=== PATIENT | male | born 1950 | race Caucasian/White ===

== ENCOUNTER 2017-08-29 20:39 | Emergency (ER) | payer MEDICARE, OTHER ==
[2017-08-29] MEDS: IV NORMAL SALINE 1,000ML 1,000 ML IV SCH ×2 (21:06→21:33)
--- NOTE | 2017-08-29 21:06 | ED.ADGEN ---
Past History Past Medical History: Other Past Surgical History: Cervical Fusion Adult General Chief Complaint Chief Complaint Min. response- grunts to questions and noxious. " He had some diarrhea the other day.. but that stopped.. he been having some back pain.. but he got really weak.. he can/'t even transfer now.. He's got Parkinson..." " He just got so sick tonight.. ( - 43 yrs) HPI HPI Patient is a 67 year old male who presents with above hx and complaints increased weakness. Pt. presents very depressed mental status . Pt. Temp. 83 F rectal. Pt. bradycardia at rates low as 40, Hypotensive 80 systolic and hypoxic on room air. Pt. has long hx of Parkinson Dz.. Pt. has not had any travel or specific ill contacts. Pt. Follows with Jim Coats MD and Dr. Pierre neurology. Pt. has been compliant with meds. Pt. had central line placed for the Dopamine and warm fluids.. Pt. bradycardia responded to warm fluid bolus and 5 pineda of Dopamine. Pacer pad placed. Pt. place on bear hugger. Pt. intubated to protect air way due to frequent desaturations at times requiring 100 NRB mask. Pt. mental status improved after warm fluid bolus of 30 per kilo, . Pt. did have some verbal responses after obtaining the warm fluid, dopamine and obtaining adequate BP's 100' to 120 systolic. . Pt. still not protecting airway prior to intubation. requested pt be a full code for now. Review of Systems Review of Systems Pt. poor historian ROS as per HPI Family History Family History Non contributory to presentation Current Medications Current Medications Current Medications Medications (Trade) Dose Ordered Sig/Junior Start Time Stop Time Status Last Admin Dose Admin Aspirin (Karlo Aspirin) 325 mg 1X ONCE 08/29/17 21:15 08/29/17 21:20 DC Dopamine HCl/ Dextrose 250 ml @ 9 mls/hr 1X ONCE 08/29/17 22:30 08/31/17 02:16 08/29/17 22:30 22.5 MLS/HR Info (Do NOT chart on this entry -- for MONITORING) 1 each PRN DAILY PRN 08/29/17 23:30 08/31/17 23:29 Iohexol (Omnipaque 300 Mg/ml) 75 ml 1X ONCE 08/29/17 23:30 08/29/17 23:31 DC 08/29/17 23:36 75 ML Lactated Ringer's 1,000 ml @ 1,000 mls/hr 1X ONCE 08/29/17 23:30 08/30/17 00:29 DC 08/29/17 23:30 1,000 MLS/HR Levofloxacin/ Dextrose 100 ml @ 100 mls/hr 1X ONCE 08/29/17 23:45 08/30/17 00:44 DC 08/29/17 23:45 100 MLS/HR Methylprednisolone Sodium Succinate (SOLU-Medrol 125MG VIAL) 125 mg 1X ONCE 08/29/17 21:45 08/29/17 21:46 DC 08/29/17 22:11 125 MG Metronidazole 100 ml @ 100 mls/hr 1X ONCE 08/29/17 21:15 08/29/17 22:14 DC 08/29/17 21:32 100 MLS/HR Propofol 100 ml @ As Directed STK-MED ONCE 08/30/17 00:05 08/30/17 00:06 DC Sodium Chloride 1,000 ml @ 1,000 mls/hr 1X ONCE 08/29/17 22:30 08/29/17 23:29 DC 08/29/17 21:33 1,000 MLS/HR Succinylcholine Chloride (Anectine) 200 mg STK-MED ONCE 08/30/17 00:10 08/30/17 00:11 DC Vancomycin HCl 1 gm/Sodium Chloride 250 ml @ 250 mls/hr 1X ONCE 08/29/17 21:15 08/29/17 21:21 DC Vancomycin HCl 2 gm/Sodium Chloride 500 ml @ 250 mls/hr 1X ONCE 08/29/17 21:30 08/29/17 23:29 DC 08/29/17 21:50 250 MLS/HR Allergies Allergies Allergies Coded Allergies Type Severity Reaction Last Updated Verified aspirin Allergy Severe 08/29/17 Yes Penicillins Allergy Unknown 08/29/17 Yes meperidine Allergy Unknown 08/29/17 Yes propoxyphene Allergy Unknown 08/29/17 Yes Physical Exam Physical Exam Constitutional: in acute distress, morbidly ill in appearance. [] HENT: Normocephalic, atraumatic, bilateral external ears normal, oropharynx dry , no oral exudates, nose normal. [] Eyes: PERRLA, EOMI, conjunctiva normal, no discharge. [] Neck: Normal range of motion, no tenderness, supple, no stridor. Kyphosis. Old surgery scars. Cardiovascular:Bradycardia Heart rate regular rhythm, no murmur []PMI to Lt. Lungs & Thorax: Bilateral breath sounds rhonchi and crackles throughout on auscultation [] Abdomen: Bowel sounds decreased, soft, no tenderness, no masses, no pulsatile masses. Hard stool in vault. Skin: Warm, dry, no erythema, eczema dry rash. Poor turgor. Capillary refill more than 4 sec. Distal cyanosis. Back: No tenderness, no CVA tenderness. [] Extremities: No tenderness, Arthritic changes, no clubbing, ROM intact, no edema. Scar Rt. hip. Neurologic: Alert to name,, severe generalized motor weakness, moves all ext. to noxious sensory . Psychologic: Affect flat, depressed. Current Patient Data Vital Signs Vital Signs Date Time Temp Pulse Resp B/P (MAP) Pulse Ox O2 Delivery O2 Flow Rate FiO2 08/30/17 00:55 84.5 66 16 135/68 (90) 98 Ventilator Lab Results Laboratory Tests Test 08/29/17 20:55 08/29/17 21:36 08/29/17 21:40 08/29/17 22:13 White Blood Count 11.8 x10^3/uL (4.0-11.0) H Red Blood Count 5.22 x10^6/uL (4.30-5.70) Hemoglobin 15.2 g/dL (13.0-17.5) Hematocrit 45.5 % (39.0-53.0) Mean Corpuscular Volume 87 fL (79-100) Mean Corpuscular Hemoglobin 29 pg (25-35) Mean Corpuscular Hemoglobin Concent 33 g/dL (31-37) Red Cell Distribution Width 15.6 % (11.5-14.5) H Platelet Count 59 x10^3/uL (140-400) L Neutrophils (%) (Auto) 93 % (31-73) H Lymphocytes (%) (Auto) 5 % (24-48) L Monocytes (%) (Auto) 2 % (0-9) Eosinophils (%) (Auto) 0 % (0-3) Basophils (%) (Auto) 0 % (0-3) Neutrophils # (Auto) 11.0 x10^3uL (1.8-7.7) H Lymphocytes # (Auto) 0.5 x10^3/uL (1.0-4.8) L Monocytes # (Auto) 0.3 x10^3/uL (0.0-1.1) Eosinophils # (Auto) 0.0 x10^3/uL (0.0-0.7) Basophils # (Auto) 0.0 x10^3/uL (0.0-0.2) Segmented Neutrophils % 78 % (35-66) H Band Neutrophils % 13 % (0-9) H Lymphocytes % 3 % (24-48) L Atypical Lymphocytes % (Manual) 3 % (0-0) H Monocytes % 3 % (0-10) Platelet Estimate Decreased (ADEQUATE) Rosenberg Cells Few Prothrombin Time 13.0 SEC (9.4-11.4) H Prothrombin Time INR 1.3 (0.9-1.1) H PTT 32 SEC (23-33) D-Dimer (Janey) 0.81 mg/L (0.00-0.50) H Sodium Level 143 mmol/L (136-145) Potassium Level 3.5 mmol/L (3.5-5.1) Chloride Level 105 mmol/L (98-107) Carbon Dioxide Level 30 mmol/L (21-32) Anion Gap 8 (6-14) Blood Urea Nitrogen 27 mg/dL (8-26) H Creatinine 0.9 mg/dL (0.7-1.3) Estimated GFR (Cockcroft-Gault) 83.7 Glucose Level 135 mg/dL (70-99) H Lactic Acid Level 2.2 mmol/L (0.4-2.0) H Calcium Level 9.4 mg/dL (8.5-10.1) Magnesium Level 2.2 mg/dL (1.8-2.4) Total Bilirubin 0.4 mg/dL (0.2-1.0) Direct Bilirubin 0.1 mg/dL (0.0-0.2) Aspartate Amino Transferase (AST) 53 U/L (15-37) H Alanine Aminotransferase (ALT) 13 U/L (16-63) L Alkaline Phosphatase 110 U/L (46-116) Creatine Kinase 169 U/L (39-308) Creatine Kinase MB (Mass) 32.7 ng/mL (0.0-3.6) H Creatine Kinase MB Relative Index 19.3 % (0-4) H Troponin I Quantitative < 0.017 ng/mL (0-0.055) GR-Wbt-A-Type Natriuretic Peptide 142 pg/mL (0-124) H Total Protein 7.6 g/dL (6.4-8.2) Albumin 2.9 g/dL (3.4-5.0) L Lipase 1110 U/L (73-393) H Amylase Level 145 U/L (25-115) H Blood pH 7.49 (7.35-7.46) H Blood Gas PCO2 31 mmHg (35-46) L Blood Gas PO2 34 mmHg (80-100) *L Blood Gas HCO3 26 mmol/L (21-28) Arterial Bld O2 Saturation (Calc) 90 % (92-99) L FiO2 21 % Group A Streptococcus Rapid Negative (NEGATIVE) Test 08/29/17 22:17 08/29/17 22:45 08/29/17 23:20 08/30/17 00:55 Influenza Type A (Rapid) Negative (NEGATIVE) Influenza Type B (Rapid) Negative (NEGATIVE) Blood pH 7.44 (7.35-7.46) 7.42 (7.35-7.46) Blood Gas PCO2 36 mmHg (35-46) 36 mmHg (35-46) Blood Gas PO2 46 mmHg (80-100) *L 103 mmHg (80-100) H Blood Gas HCO3 27 mmol/L (21-28) 25 mmol/L (21-28) Arterial Bld O2 Saturation (Calc) 95 % (92-99) 99 % (92-99) FiO2 36 % 80 % Urine Collection Type Unknown Urine Color Yellow Urine Clarity Hazy Urine pH 5.0 Urine Specific [place] 1.020 Urine Protein Neg (NEG-TRACE) Urine Glucose (UA) Neg mg/dL (NEG) Urine Ketones (Stick) Neg mg/dL (NEG) Urine Blood Neg (NEG) Urine Nitrite Neg (NEG) Urine Bilirubin Neg (NEG) Urine Urobilinogen Dipstick 1 mg/dL (0.2 mg/dL) Urine Leukocyte Esterase Neg (NEG) Urine RBC Occ /HPF (0-2) Urine WBC Occ /HPF (0-4) Urine Squamous Epithelial Cells Occ /LPF Urine Bacteria Few /HPF (0-FEW) Urine Hyaline Casts Occ /HPF Urine Mucus Slight /LPF Urine Opiates Screen Neg (NEG) Urine Methadone Screen Neg (NEG) Urine Barbiturates Neg (NEG) Urine Phencyclidine Screen Neg (NEG) Urine Amphetamine/Methamphetamine Neg (NEG) Urine Benzodiazepines Screen Neg (NEG) Urine Cocaine Screen Neg (NEG) Urine Cannabinoids Screen Neg (NEG) Urine Ethyl Alcohol Neg (NEG) Lactic Acid Level 3.4 mmol/L (0.4-2.0) H EKG EKG My interpretation of EKG shows sinus Bradycardia- with prolonged AR, Lt. axis, LBB. - no findings of acute STEMI with contralateral changes. [] Radiology/Procedures Radiology/Procedures My interpretation of CXR show diffuse pneumonia, atelectasis, cardiomegaly. Hardware in neck. Post central line, OG and intubation show adequate placement[] My interpretation of Head and Cervical CT- shows no shift, mass, edema, bleed, or fracture. Does have findings of white matter disease and atrophy. Does have findings of severe degenerative joint changes of neck including fixation and approximate C5,. Patient's CT has diffuse central and foraminal stenosis at the level of C4-C5. See formal report when available. My interpretation of CT of chest shows diffuse pneumonia. No obvious large vessel pulmonary embolism. My interpretation of abdomen film shows no free air under diaphragm. CT of abdomen shows no free air. Does have appears to be inflamed pancreatic head. Constipation. See formal report when available. Course & Med Decision Making Course & Med Decision Making Pertinent Labs and Imaging studies reviewed. (See chart for details). Procedure Note: Central line placement- emergent need for pressors and fluids - sterile technique used. Drape and gown ,gloves , mask, and hat. Prepped and draped left subclavian. Kit prep. Placed left subclavian triple-lumen by Seldinger technique. Biopatch and sutured in place. Sterile dressing. Chest x- ray post show adequate position. No pneumothorax. Procedure note: Intubation and OG placement- patient periodically having desaturations, poor protection of his airway with gag. Intubated to protect airway and achieve better oxygenation. Patient intubated by [place] Scope 7.5 to -23 cm at teeth. Fog of tube. Breath sounds at axillary. No breath sounds over stomach. Increased saturations. Tube was secured by Kit. OG placement by auscultation. Post intubation x-ray shows adequate placement of OG and ET tube. Patient placed on AC at rate 16, 6 PEEP, Oxygen titrated- Critical Care - 120 minutes +, Counseling with family, vent management, multiple re-evaluations. Discussed presentation, testing and tx. plan with Dr. Balderas- will accept at [facility] - ICU. Dr. Balderas requested that Cardiology, Pulmonary, GI and Neurology be consulted reference this pt. Discussed presentation, testing and tx. plan with Dr. Arrieta, Dr. Beauchamp at time of Transfer. Still awaiting call backs for neurology and GI at time of transfer. Final Impression Final Impression 1. Sepsis 2. Pneumonia - Diffuse- Suspect chronic aspiration 3. Hypothermia 4. Hypotension 5. Parkinson 6. Elevated Lipase/ Amylase 7. Elevated D-dimer 8. Leukocytosis 9. Elevated Lactic Acid 10.Respiratory Failure- Hypoxia 11.Bradycardia- 12.Thrombocytopenia 13.Pancreatitis- 14.Constipation 14. Severe Central and Foramina Cervical Stenosis- Hx. prior fixation Problems: Dragon Disclaimer Dragon Disclaimer This electronic medical record was generated, in whole or in part, using a voice recognition dictation system. LINDY BAUTISTA MD Aug 29, 2017 21:06
[2017-08-29] MEDS ORDERED: VANCOMYCIN 1 GM in IV NORMAL SALINE 250ML 250 ML IV ONE (21:15)
[2017-08-29] MEDS ORDERED: ASPIRIN 325 MG TABLET PO ONE (21:15)
[2017-08-29] MEDS ORDERED: VANCOMYCIN 2 GM in IV NORMAL SALINE 500ML 500 ML IV ONE (21:30)
[2017-08-29 21:34] LABS: BASO % 0 % (0-3); EOS % 0 % (0-3); HEMATOCRIT 45.5 % (39.0-53.0); HEMOGLOBIN 15.2 g/dL (13.0-17.5); LYMPH # 0.5 x10^3/uL (1.0-4.8); LYMPH % 5 % (24-48); MEAN CORPUSCULAR HEMOGLOBIN 29 pg (25-35); MEAN CORPUSCULAR HGB CONC 33 g/dL (31-37); MEAN CORPUSCULAR VOLUME 87 fL (79-100); MONO # 0.3 x10^3/uL (0.0-1.1); MONO % 2 % (0-9); NEUT % 93 % (31-73); PLATELET COUNT 59 x10^3/uL (140-400); RED BLOOD COUNT 5.22 x10^6/uL (4.30-5.70); RED CELL DISTRIBUTION WIDTH 15.6 % (11.5-14.5); WHITE BLOOD COUNT 11.8 x10^3/uL (4.0-11.0)
[2017-08-29 21:43] LABS: ALBUMIN 2.9 g/dL (3.4-5.0); CALCIUM 9.4 mg/dL (8.5-10.1); CREATININE 0.9 mg/dL (0.7-1.3); DIRECT BILIRUBIN 0.1 mg/dL (0.0-0.2); GFR 83.7; MAGNESIUM 2.2 mg/dL (1.8-2.4); TOTAL BILIRUBIN 0.4 mg/dL (0.2-1.0); TOTAL PROTEIN 7.6 g/dL (6.4-8.2)
[2017-08-29 21:44] LABS: POTASSIUM 3.5 mmol/L (3.5-5.1)
[2017-08-29] MEDS ORDERED: methylPREDNISolone SOD SUCC PF 125 MG/2 ML VIAL. IV ONE (21:45)
[2017-08-29] MEDS ORDERED: ATROPINE 0.5 MG/5 ML DISP.SYRIN. ONE (22:00)
[2017-08-29 22:28] LABS: BGAS PH 7.49 (7.35-7.46)
[2017-08-29] MEDS ORDERED: IV NORMAL SALINE 1,000ML 1,000 ML IV ONE (22:30)
[2017-08-29] MEDS ORDERED: POTA20TA4 PO (22:35)
[2017-08-29] MEDS ORDERED: FURO-68 PO (22:35)
[2017-08-29] MEDS ORDERED: PRAM0.255 PO ×2 (22:35)
[2017-08-29] MEDS ORDERED: CARB1TAB2 PO (22:35)
[2017-08-29 22:43] LABS: % BANDS 13 % (0-9); % LYMPHS 3 % (24-48); % MONOS 3 % (0-10); % SEGS 78 % (35-66)
[2017-08-29 22:44] LABS: PLT ESTIMATE DECREASED (ADEQUATE)
[2017-08-29 22:46] LABS: BURR CELLS FEW
[2017-08-29 22:47] LABS: % ATYL 3 % (0-0)
[2017-08-29 22:58] LABS: INFLUENZA A PATIENT NEGATIVE (NEGATIVE); INFLUENZA B PATIENT NEGATIVE (NEGATIVE)
[2017-08-29] MEDS ORDERED: IV RINGERS SOLUTION,LACTATED 1,000 ML IV ONE ×2 (23:00→23:30)
[2017-08-29] MEDS ORDERED: IOHEXOL 300 MG/ML 75 ML VIAL. IV ONE (23:30)
[2017-08-29] MEDS ORDERED: CONTRAST GIVEN MC PRN (23:30)
[2017-08-29 23:48] LABS: BARBITURATES NEG (NEG); BENZODIAZEPINES NEG (NEG); CANNABINOIDS NEG (NEG); COCAINE NEG (NEG); METHADONE NEG (NEG); OPIATES NEG (NEG); PHENCYCLIDINE NEG (NEG)
[2017-08-29 23:49] LABS: AMPHETAMINE/METHAMPHETAMINE NEG (NEG)
[2017-08-29 23:53] LABS: BACTERIA,URINE FEW /HPF (0-FEW); BILIRUBIN,URINE NEG (NEG); CLARITY,URINE HAZY; COLOR,URINE YELLOW; GLUCOSE,URINE NEG (NEG); NITRITE,URINE NEG (NEG); RBC,URINE OCC /HPF (0-2); UROBILINOGEN,URINE 1 mg/dL (0.2 mg/dL); WBC,URINE OCC /HPF (0-4)
[2017-08-29 23:54] LABS: HYALINE CASTS, URINE OCC /HPF; SQUAMOUS EPITHELIAL CELL,UR OCC /LPF
[2017-08-30] MEDS ORDERED: PROPOFOL 0 ML IV ONE (00:04)
[2017-08-30] MEDS ORDERED: PROPOFOL 100 ML IV ONE (00:05)
[2017-08-30] MEDS ORDERED: SUCCINYLCHOLINE 200 MG/10 ML VIAL. ONE ×2 (00:10→00:30)
[2017-08-30] MEDS ORDERED: KETAMINE HCL 500 MG/10 ML VIAL. ONE (00:30)
[2017-08-30] MEDS ORDERED: MIDAZOLAM HCL PF 5 MG/5 ML VIAL. ONE (00:30)
[2017-08-30] MEDS ORDERED: PROPOFOL 10,000 MCG/ML (20ML) VIAL IV ONE (00:30)
[2017-08-30 00:55] VITALS: BP 135/68
--- NOTE | 2017-08-30 01:01 | RAD ---
EXAM: 1. CT HEAD WITHOUT CONTRAST. 2. CT CERVICAL SPINE WITHOUT CONTRAST. HISTORY: Weakness, lethargy, slurred speech, neck pain, fall. TECHNIQUE: Computed tomography of the head and cervical spine was performed without intravenous contrast. COMPARISON: None. FINDINGS: There is no intracranial hemorrhage. Hypoattenuation within the periventricular white matter indicates mild chronic microangiopathic change. Prominence of the lateral ventricles and hemispheric sulci indicates mild atrophy. There is mucosal thickening in the left maxillary sinus. The orbits are unremarkable. The temporal bones are unremarkable. The calvarium reveals no suspicious lesions. There are anterior cervical discectomy and fusion changes from C4 through C6. This appears solid at C5-6 but not clearly at C4-5. Alignment is maintained. There is mild osteoarthritis at C1-2. No fractures are identified. Degenerative disc disease is moderate to severe at C6-7. There is no prevertebral soft tissue swelling. At C2-3, there is a small posterior disc bulge. Left facet osteoarthritis is moderate to severe with prominent subchondral cysts. Uncovertebral osteoarthritis is mild to moderate on the left greater than right. Neural foraminal stenosis is moderate to severe on the left and moderate on the right. At C3-4, there is a moderate posterior disc-osteophyte complex. Central canal stenosis is moderate with minimal anteroposterior central canal diameter 7 mm. Uncovertebral osteoarthritis is moderate on the right greater than left. Neural foraminal stenosis is moderate on the left and moderate to severe on the right. At C4-5, there is a large posterior disc-osteophyte complex. This measures 7 mm anteroposteriorly. Central canal stenosis is severe. Minimal anteroposterior central canal diameter is 5 mm. Central stenosis is more severe on the left than right. Uncovertebral osteoarthritis is mild on the right. Neural foraminal stenosis is mild on the right. At C5-6, there is a moderate posterior disc-osteophyte complex. Central canal stenosis is moderate to severe with minimal anteroposterior central canal diameter 6 mm. Uncovertebral osteoarthritis is severe on the left and moderate on the right. Neural foraminal stenosis is moderate to severe on the left and moderate on the right. At C6-7, there is a moderate to large posterior disc-osteophyte complex. Central canal stenosis is moderate to severe with minimal anteroposterior central canal diameter 6 mm. Central stenosis is more severe on the left than right. Uncovertebral osteoarthritis is moderate to severe on the right and severe on the left. Neural foraminal stenosis is moderate on the right and moderate to severe on the left. Refer to today's chest study for more information. IMPRESSION: 1. No acute intracranial findings. 2. Mild atrophy and chronic microangiopathic white matter change. 3. Large posterior disc-osteophyte complexes result in central canal stenosis that is severe at C4-5 and moderate to severe from C5 through C7. It is moderate more superiorly. Ongoing management is recommended 4. multilevel bilateral facet and uncovertebral osteoarthritis results in moderate to severe diffuse neural foraminal stenosis as above. 5. C4-C6 anterior cervical discectomy and fusion appears solid at C5-6 but not clearly at C4-5. *One or more of the following individualized dose reduction techniques were utilized for this examination: 1. Automated exposure control. 2. Adjustment of the mA and/or kV according to patient size. 3. Use of iterative reconstruction technique. Electronically signed by: Titi Lamas MD (08/30/2017 12:58 AM) [id number]
[2017-08-30 01:07] LABS: BGAS PH 7.44 (7.35-7.46)
--- NOTE | 2017-08-30 01:13 | RAD ---
EXAM: 1. CT ANGIOGRAPHY OF THE CHEST WITH AND WITHOUT CONTRAST. 2. CT ABDOMEN/PELVIS WITH CONTRAST. HISTORY: Shortness of breath, cough, hypoxia, elevated d-dimer, elevated amylase, abdominal pain. TECHNIQUE: Computed tomographic angiography of the chest was performed before and after the intravenous administration of 75 mL Omnipaque 300. 3-D maximum intensity projections were also performed. CT of the abdomen/pelvis was also performed after intravenous contrast. COMPARISON: None. FINDINGS: Bone windows reveal no suspicious lesions. A right hip hemiarthroplasty is noted. Respiratory motion artifact limits assessment for small peripheral pulmonary emboli in the bases. None are seen. There is no aortic dissection or aneurysm. 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 A lateral aortic lymph node measures 2.1 x 1.3 cm. Right paratracheal and bilateral hilar lymph nodes are also prominent to a lesser degree. There are no enlarged axillary lymph nodes. There is no pleural or pericardial effusion. The heart is mildly enlarged. There are bilateral diffuse interstitial and airspace infiltrates with a basilar predominance. There are mild inflammatory changes about the pancreatic head. The pancreatic duct does not appear dilated. There is no biliary dilatation. There is a small amount of retroperitoneal fluid without a drainable collection. Contrast opacification is suboptimal. There is a small amount of pericholecystic fluid without clear gallbladder wall thickening or radiopaque cholelithiasis. The liver, spleen, adrenal glands and left kidney are unremarkable. There is a 1 cm cyst at the right renal lower pole. The bladder is decompressed by a Johnson catheter. A left arm PICC line is also in place. The bladder is decompressed but demonstrates mild wall thickening. Intraluminal gas is consistent with instrumentation. The rectum is distended to 7 cm. Stool throughout the left colon suggests mild constipation. Mild wall thickening of the right colon may be only from luminal decompression. The appendix is not inflamed. There is no obstruction. There are no pathologically enlarged lymph nodes. IMPRESSION: 1. Respiratory motion artifact limits sensitivity. No pulmonary emboli are identified. 2. Diffuse bilateral interstitial and airspace infiltrates are consistent moderate to severe pulmonary edema or diffuse pneumonia. 3. Mild cardiomegaly. 4. Mild inflammatory changes about the pancreatic head. Correlate for acute pancreatitis. 5. A small amount of fluid adjacent to the gallbladder may be trace ascites. Correlate with other data to exclude cholecystitis. 6. Findings suggesting fecal impaction. Right colonic wall thickening may be only from luminal decompression. Correlate to exclude mild right colitis. 6. Lateral wall thickening. Correlate with urinalysis. *One or more of the following individualized dose reduction techniques were utilized for this examination: 1. Automated exposure control. 2. Adjustment of the mA and/or kV according to patient size. 3. Use of iterative reconstruction technique. Electronically signed by: Titi Lamas MD (08/30/2017 1:09 AM) [id number]
[2017-08-30 01:36] LABS: BGAS PH 7.42 (7.35-7.46)
--- NOTE | 2017-08-30 03:51 | EKG ---
[address] [address] Test Date: 2017-08-29 Test Time: 20:53:00 Pat Name: CINDY ASTUDILLO Department: Room: Gender: M Adolescent Specialist: : [id number] Requested By: LINDY BAUTISTA Order Number: [id number] Reading MD: Measurements Intervals Friona Rate: 41 P: 39 NM: 282 QRS: -11 QRSD: 124 T: -43 QT: 528 QTc: 436 Interpretive Statements SINUS BRADYCARDIA PROLONGED NM INTERVAL LEFTWARD AXIS LEFT BUNDLE BRANCH BLOCK ABNORMAL ECG RI6.01 No previous ECG available for comparison
--- NOTE | 2017-08-30 07:17 | RAD ---
Indication: Shortness of breath, bradycardia, check line placement Technique: Portable AP chest x-ray Comparison: 07/31/2016 Findings: Left-sided line is seen with its tip in the mid SVC. Heart is normal in size. Lungs are hypoinflated. Bilateral patchy air space and interstitial opacities noted. No pneumothorax. No large pleural effusion. Visualized bony thorax is within normal limits. Impression: 1. Tip of the left-sided PICC line projects over the mid SVC. 2. Findings of multifocal pneumonia or pulmonary edema.
--- NOTE | 2017-08-30 07:59 | RAD ---
Indication: Intubation Technique: Supine portable AP chest x-ray Comparison: Plain film from 08/29/2017 Findings: Interval intubation with the tip of the ET tube approximately 6 cm above the level of radu. Stable position of left-sided PICC line with its tip in the mid SVC. Heart is normal in size. Diffuse bilateral confluent patchy opacities noted. No pneumothorax. No large pleural effusion. Visualized bony thorax within normal limits. NG tube is seen with its tip in the body of the stomach. Impression: 1. Appropriately positioned ET tube. 2. Bilateral lung disease likely secondary to multifocal pneumonia or pulmonary edema.
== END 2017-08-30 01:32 | disposition short-term general hospital (02) ==
LOC: ER 20:39
DX: A41.9 Sepsis, unspecified organism (principal); R65.20 Severe sepsis without septic shock; J96.01 Acute respiratory failure with hypoxia; J18.9 Pneumonia, unspecified organism; T68.XXXA Hypothermia, initial encounter; I95.9 Hypotension, unspecified; D72.829 Elevated white blood cell count, unspecified; R00.1 Bradycardia, unspecified; D69.6 Thrombocytopenia, unspecified; K85.90 Acute pancreatitis without necrosis or infection, unspecified; K59.00 Constipation, unspecified; R74.8 Abnormal levels of other serum enzymes; R79.1 Abnormal coagulation profile; R74.0 Nonspecific elevation of levels of transaminase and lactic acid dehydrogenase [LDH]; G20 Parkinson's disease; M48.02 Spinal stenosis, cervical region; Z88.6 Allergy status to analgesic agent; Z88.0 Allergy status to penicillin; Z88.8 Allergy status to other drugs, medicaments and biological substances
CPT/HCPCS: 31500; 36415; 36556; 36600; 43752; 51702; 70450; 71045; 71275; 72125; 74177; 80048; 80076; 80307; 81001; 82150; 82533; 82553; 82803; 83605; 83690; 83735; 83880; 84443; 84484; 85007; 85025; 85379; 85610; 85730; 87040; 87070; 87205; 87804; 87880; 93005; 94002; 96365; 96366; 96367; 96368; 96375; 99291; 99292; J0330; J0461; J1265; J1956; J2250; J2704; J2930; J3370; J3490; J7040; J7120; Q9967; G0479; J7030

== ENCOUNTER → 2017-12-09 | Outpatient (CLI) | payer OTHER ==
[~2017-12-09] MED LIST: CARB1TAB2 PO; FURO-68 PO; POTA20TA4 PO; PRAM0.255 PO
--- NOTE | 2017-12-09 12:51 | RAD ---
Lumbar spine, 3 views, 12/09/2017: HISTORY: Low back pain The lumbar vertebral heights are well-maintained. The intervertebral disc spaces are fairly well preserved. There are moderate scattered marginal spurs. There are mild to moderate degenerative changes at scattered facet joints, particularly in the lower lumbar spine. The paraspinous soft tissues are unremarkable. IMPRESSION: 1. Mild to moderate scattered degenerative changes. 2. No acute bony abnormality is detected. Electronically signed by: Jay Santacruz MD (12/09/2017 12:47 PM) [facility]
== END | disposition home or self-care (01) ==
LOC: DXRAD 11:06
PROVIDERS: ATTEND Family Medicine
DX: M46.06 Spinal enthesopathy, lumbar region (principal)
CPT/HCPCS: 72100

== ENCOUNTER 2018-04-22 22:43 | Emergency (ER) | payer MEDICARE, OTHER ==
[~2018-04-22] VITALS: Ht 185.4 cm; Wt 109.3 kg
[2018-04-22] MEDS ORDERED: CEPH-264 PO (23:33)
[2018-04-22] MEDS ORDERED: cefTRIAXone SODIUM 1 GM VIAL IV ONE (23:35)
[2018-04-22] MEDS ORDERED: LIDOCAINE 1% Multi-Dose 20 ML VIAL. ONE (23:35)
--- NOTE | 2018-04-22 23:35 | PHYS DOC ---
Adult General Chief Complaint Chief Complaint feels warm HPI HPI 68 years old presented to the emergency department with the chief complaint feeling warm might have a fever is also complaining of cough for the past 3 days no shortness of breath no chest pain no abdominal pain no nausea no vomiting no headache no rash Review of Systems Review of Systems Constitutional: Denies fever or chills [] Eyes: Denies change in visual acuity, redness, or eye pain [] HENT: Denies nasal congestion or sore throat [] Respiratory: Denies shortness of breath [] Cardiovascular: No additional information not addressed in HPI [] GI: Denies abdominal pain, nausea, vomiting, bloody stools or diarrhea [] : Denies dysuria or hematuria [] Musculoskeletal: Denies back pain or joint pain [] Integument: Denies rash or skin lesions [] Neurologic: Denies headache, focal weakness or sensory changes [] Endocrine: Denies polyuria or polydipsia [] All other systems were reviewed and found to be within normal limits, except as documented in this note. Allergies Allergies Allergies Coded Allergies Type Severity Reaction Last Updated Verified aspirin Allergy Severe 08/29/17 Yes Penicillins Allergy Unknown 08/29/17 Yes meperidine Allergy Unknown 08/29/17 Yes propoxyphene Allergy Unknown 08/29/17 Yes Physical Exam Physical Exam Constitutional: Well developed, well nourished, no acute distress, non-toxic appearance. [] HENT: Normocephalic, atraumatic, bilateral external ears normal, oropharynx moist, no oral exudates, nose normal. [] Eyes: PERRLA, EOMI, conjunctiva normal, no discharge. [] Neck: Normal range of motion, no tenderness, supple, no stridor. [] Cardiovascular:Heart rate regular rhythm, no murmur [] Lungs & Thorax: Bilateral breath sounds clear to auscultation [] Abdomen: Bowel sounds normal, soft, no tenderness, no masses, no pulsatile masses. [] Skin: Warm, dry, no erythema, no rash. [] Back: No tenderness, no CVA tenderness. [] Extremities: No tenderness, no cyanosis, no clubbing, ROM intact, no edema. [] Neurologic: Alert and oriented X 3, normal motor function, normal sensory function, no focal deficits noted. [] Psychologic: Affect normal, judgement normal, mood normal. [] Current Patient Data Vital Signs Vital Signs Date Time Temp Pulse Resp B/P (MAP) Pulse Ox O2 Delivery O2 Flow Rate FiO2 04/22/18 23:02 97.6 80 18 96 Room Air EKG EKG [] Radiology/Procedures Radiology/Procedures [] Course & Med Decision Making Course & Med Decision Making Pertinent Labs and Imaging studies reviewed. (See chart for details) [] Final Impression Final Impression [] Problems: (1) Bronchitis Dragon Disclaimer Dragon Disclaimer This electronic medical record was generated, in whole or in part, using a voice recognition dictation system. MARCUS SAMSON MD Apr 22, 2018 23:34
[2018-04-22 23:45] VITALS: BP 109/67
[2018-04-22] MEDS ORDERED: cefTRIAXone IM 1 GM VIAL IM ONE (23:45)
== END 2018-04-23 00:05 | disposition home or self-care (01) ==
LOC: ER 22:43
DX: J40 Bronchitis, not specified as acute or chronic (principal); Z88.6 Allergy status to analgesic agent; Z88.0 Allergy status to penicillin; Z88.8 Allergy status to other drugs, medicaments and biological substances
CPT/HCPCS: 96372; 99284; J0696

== ENCOUNTER 2018-05-29 17:48 | Inpatient (IN) | payer MEDICARE, OTHER ==
[~2018-05-29] VITALS: Ht 188 cm; Wt 113.2 kg
[~2018-05-29 17:48] MED LIST changes: -CETI10TA16 PO; -CHOL10003 PO; -LEVO750T5 PO; -MULT1TAB52 PO; -NYST15PO9 TP
[2018-05-29 18:18] VITALS: BP 143/78
[2018-05-29 19:05] VITALS: BP 126/85
[2018-05-29 19:19] LABS: HEMATOCRIT 42.8 % (39.0-53.0); HEMOGLOBIN 14.3 g/dL (13.0-17.5); RED BLOOD COUNT 4.92 x10^6/uL (4.30-5.70); RED CELL DISTRIBUTION WIDTH 15.1 % (11.5-14.5); WHITE BLOOD COUNT 9.3 x10^3/uL (4.0-11.0)
[2018-05-29 19:27] LABS: ALBUMIN/GLOBULIN RATIO 0.7 (1.0-1.7); CALCIUM 8.6 mg/dL (8.5-10.1); CREATININE 0.6 mg/dL (0.7-1.3); GFR 133.2; POTASSIUM 3.7 mmol/L (3.5-5.1); TOTAL BILIRUBIN 0.6 mg/dL (0.2-1.0); TOTAL PROTEIN 7.6 g/dL (6.4-8.2)
[2018-05-29] MEDS ORDERED: MULT1TAB52 PO (19:51)
[2018-05-29] MEDS ORDERED: CHOL10003 PO (19:51)
[2018-05-29] MEDS ORDERED: NYST15PO9 TP (19:51)
[2018-05-29] MEDS ORDERED: CETI10TA16 PO (19:51)
[2018-05-29 19:56] LABS: BGAS PH 7.39 (7.35-7.46)
[2018-05-29] MEDS: IPRATRPIUM/ALBUTEROL 0.5/2.5MG 3 ML NEBU. NEB SCH (20:44)
[2018-05-29] MEDS ORDERED: FUROSEMIDE 40 MG TABLET PO SCH (21:00)
[2018-05-29] MEDS ORDERED: POTASSIUM CHLORIDE 20 MEQ TABLET.ER. PO SCH (21:00)
[2018-05-29] MEDS: NYSTATIN TOPICAL POWDER 15GM BOTTLE. TP SCH (21:51)
[2018-05-29] MEDS: PRAMIPEXOLE 0.5 MG TABLET. PO SCH (21:51)
[2018-05-29] MEDS: CARBIDOPA/LEVODOPA 25/100MG TABLET PO SCH (21:51)
[2018-05-29 23:15] VITALS: BP 147/73
[2018-05-30] MEDS: IPRATRPIUM/ALBUTEROL 0.5/2.5MG 3 ML NEBU. NEB SCH ×4 (05:19→20:52)
[2018-05-30 05:45] VITALS: BP 114/70
[2018-05-30] MEDS: CETIRIZINE HCL 10 MG TABLET PO SCH (08:24)
[2018-05-30] MEDS: PRAMIPEXOLE 0.5 MG TABLET. PO SCH ×3 (08:24→20:40)
[2018-05-30] MEDS: CHOLECALCIFEROL (VITAMIN D3) 1,000 UNIT TABLET PO SCH (08:25)
[2018-05-30] MEDS: CARBIDOPA/LEVODOPA 25/100MG TABLET PO SCH ×4 (08:25→20:40)
[2018-05-30] MEDS: MULTIVITAMIN with MINERAL TABLET. PO SCH (08:25)
[2018-05-30] MEDS: NYSTATIN TOPICAL POWDER 15GM BOTTLE. TP SCH ×2 (08:26→20:40)
[2018-05-30] MEDS: LACTOBACILLUS RHAMNOSUS GG 1 CAPSULE. PO SCH ×2 (08:26→20:39)
[2018-05-30 10:25] VITALS: BP 118/74
[2018-05-30 14:36] VITALS: BP 127/80
[2018-05-30 19:43] VITALS: BP 114/70
--- NOTE | 2018-05-30 20:41 | HP ---
ADMIT DATE: 05/29/2018 HISTORY OF PRESENT ILLNESS: The patient is a 68-year-old male patient who apparently was seen by his primary care physician Flor Vernon MD with a complaint of cough that has been going on for 2 days, shortness of breath. The cough was mostly dry. He denied any chest pain, denied any chills, rigors or fever. He was evaluated, has had a chest x-ray done, which showed that there was left lower lobe infiltrate and the patient was admitted directly, initially under Dr. Simeon by mistake. I saw him and we did start him on IV Levaquin as he is ALLERGIC TO PENICILLIN. PAST MEDICAL HISTORY: Significant for Parkinson's disease diagnosed about 8 years ago. He is known to have type 2 diabetes that is diet controlled, he is not on any medication for that. He denied any history of hypertension and hyperlipidemia. Denied any COPD or chronic bronchitis. PAST SURGICAL HISTORY: Significant for right hip hemiarthroplasty, cervical spine fusion, lumbar spine fusion, tonsillectomy and ____. ALLERGIES: He is allergic to ASPIRIN, DARVON, DEMEROL, AND AUGMENTIN. MEDICATIONS: He is currently on following medications: He is on cetirizine 10 mg once a day. He is on carbidopa/levodopa for Sinemet 25/100 one tablet 4 times a day, pramipexole for Mirapex 1.5 mg 3 times a day, nystatin powder apply topically twice a day, cholecalciferol for vitamin D3 1000 International Units once a day, multivitamin 1 tablet once a day. FAMILY HISTORY: He has 1 brother older and diseased because of congestive heart failure. His father at the age of 79. He is apparently known to have Parkinson's disease and of cardiac arrest at home. His mother at the age of 80 because of Alzheimer's disease. SOCIAL HISTORY: He is , has 2 grown sons. 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 REVIEW OF SYSTEMS: The patient denied any blurring of vision, cataract, glaucoma or macular degeneration. Denied any earache, tinnitus or sensorineural deafness. Denied nosebleeds, stuffy nose or postnasal drip. Denied any sore throat, sore tongue, toothache, hoarseness of voice or difficulty swallowing. Denied any nausea, vomiting, diarrhea. Did complain of constipation. Denied any hematemesis, melena or hematochezia. Denied any dysuria, frequency or hematuria. Denied any chest pain. Did complain of shortness of breath. Denied any orthopnea or paroxysmal nocturnal dyspnea. Did complain of cough with scanty sputum. Denied any chills, rigors, or fever. Denied any dizziness, lightheadedness, or vertigo. PHYSICAL EXAMINATION: GENERAL: When I saw him, he arrived to the hospital. The patient was somewhat pale, but not jaundiced, cyanosis, or thyromegaly. No jugular venous distension. No limb edema. VITAL SIGNS: His heart rate was 66, blood pressure was 143/78, temperature was 96.8, respiratory rate was 20, and oxygen saturation was 92% on room air. HEAD, EARS, EYES, NOSE, AND THROAT: Showed normocephalic, atraumatic. NECK: Supple. HEART: Showed normal first and second heart sounds with no gallop, rub or murmur. CHEST: Shows central trachea, equal bilateral expansion air entry, vesicular breath sounds with crepitation, early inspiratory coarse more on the left than right. I could not appreciate any rhonchi. ABDOMEN: Distended, soft, nontender. No guarding or rigidity. No organomegaly. All hernial orifices are intact. Bowel sounds normal. NEUROLOGIC: He was awake, alert, responding appropriately. All cranial nerves are intact. He has masked face and some rigidity. I did not see any tremors. When I saw him, we ordered lab work as well as blood gases and started him on IV Levaquin. HE IS ALLERGIC TO PENICILLIN, we have continued all his home medication. ASSESSMENT AND PLAN: Pneumonia with infiltrate, more prominent in the left than the right due to community-acquired pneumonia for which he was started on Levaquin. He has Parkinson's disease, diet-controlled diabetes. LYN RÍOS MD DR: FRANKLIN/harmony JOB#: [id number] / [id number]
[2018-05-30 22:38] VITALS: BP 109/75
--- NOTE | 2018-05-31 01:10 | PN ---
DATE: 05/30/2018 SUBJECTIVE: The patient is a 68-year-old male patient who was admitted yesterday directly from his primary care physician with shortness of breath, cough with scant sputum is found to have bilateral lung infiltrate, more so on the left than right and was admitted with community-acquired pneumonia. He is allergic to PENICILLIN. We did start him on IV Levaquin PHYSICAL EXAMINATION: GENERAL: When I saw him today, he definitely looks much better, more awake and alert. He actually was somewhat hypothermic yesterday. However, when I saw him today, he looked well and was clearly in no apparent respiratory distress, slightly pale, but no jaundice, cyanosis, or thyromegaly. No jugular venous distention. No limb edema. VITAL SIGNS: His heart rate was 76, blood pressure was 118/74, temperature was 97.8, respiratory rate 20, and oxygen saturation was 93% on 2 liters of oxygen. HEAD, EYES, EARS, NOSE AND THROAT: Showed normocephalic, atraumatic. NECK: Supple. HEART: Showed normal first and second heart sounds with no gallop, rub or murmur. CHEST: Showed central trachea, equal bilateral expansion, air entry, vesicular sounds with crepitations that are early inspiratory and coarse, more so on the left than right. I could not appreciate any rhonchi. ABDOMEN: Distended, soft, nontender. NEUROLOGIC: He has prominent parkinsonian feature. LABORATORY DATA: His lab work showed serum sodium 134, potassium 3.7, chloride 99, bicarbonate 25, anion gap of 10, BUN 14, creatinine was 0.6, estimated GFR was 133 mL per minute. His glucose was 91, calcium was 8.6. Total bilirubin, AST, ALT, alkaline phosphatase were normal. His total protein was 7.6, albumin 3. His white cell count was 9300, hemoglobin 14.3, hematocrit 42.8, MCV 87 and platelet count of 137,000. His blood gases showed a pH of 7.39, pCO2 of 37, pO2 of 65, bicarbonate 23, anion gap of 93, and FiO2 of 28. His chest x-ray showed his heart size is normal. He has interstitial infiltrates of the lung watson, especially present on the left, improved aeration of the left lower lung field is suggested compared to previous exams. Pulmonary vasculature is mildly congested. Interstitial thickening of the right lung field is minimal. No pneumothorax, no significant effusion. ASSESSMENT AND PLAN: My plan is to continue with the IV Levaquin. Continue with his other home medication. We will also get PT, OT and repeat his lab work tomorrow and decide further managements accordingly. LYN RÍOS MD DR: FRANKLIN/harmony JOB#: [id number] / [id number]
[2018-05-31] MEDS: IPRATRPIUM/ALBUTEROL 0.5/2.5MG 3 ML NEBU. NEB SCH ×4 (05:12→21:09)
[2018-05-31 05:31] VITALS: BP 123/76
[2018-05-31 06:37] LABS: BASO % 0 % (0-3); EOS # 0.2 x10^3/uL (0.0-0.7); EOS % 3 % (0-3); HEMATOCRIT 40.3 % (39.0-53.0); HEMOGLOBIN 13.4 g/dL (13.0-17.5); LYMPH # 1.4 x10^3/uL (1.0-4.8); LYMPH % 18 % (24-48); MEAN CORPUSCULAR HEMOGLOBIN 29 pg (25-35); MEAN CORPUSCULAR HGB CONC 33 g/dL (31-37); MEAN CORPUSCULAR VOLUME 87 fL (79-100); MONO # 0.9 x10^3/uL (0.0-1.1); MONO % 12 % (0-9); NEUT # 5.1 x10^3uL (1.8-7.7); NEUT % 67 % (31-73); PLATELET COUNT 146 x10^3/uL (140-400); RED BLOOD COUNT 4.62 x10^6/uL (4.30-5.70); RED CELL DISTRIBUTION WIDTH 14.9 % (11.5-14.5); WHITE BLOOD COUNT 7.6 x10^3/uL (4.0-11.0)
[2018-05-31 07:03] LABS: ALBUMIN 2.6 g/dL (3.4-5.0); ALBUMIN/GLOBULIN RATIO 0.6 (1.0-1.7); CALCIUM 8.6 mg/dL (8.5-10.1); CREATININE 0.7 mg/dL (0.7-1.3); GFR 111.5; POTASSIUM 4.1 mmol/L (3.5-5.1); TOTAL BILIRUBIN 0.5 mg/dL (0.2-1.0); TOTAL PROTEIN 7.1 g/dL (6.4-8.2)
[2018-05-31] MEDS: CHOLECALCIFEROL (VITAMIN D3) 1,000 UNIT TABLET PO SCH (08:34)
[2018-05-31] MEDS: MULTIVITAMIN with MINERAL TABLET. PO SCH (08:34)
[2018-05-31] MEDS: CARBIDOPA/LEVODOPA 25/100MG TABLET PO SCH ×4 (08:34→20:10)
[2018-05-31] MEDS: CETIRIZINE HCL 10 MG TABLET PO SCH (08:34)
[2018-05-31] MEDS: LACTOBACILLUS RHAMNOSUS GG 1 CAPSULE. PO SCH ×2 (08:34→20:10)
[2018-05-31] MEDS: PRAMIPEXOLE 0.5 MG TABLET. PO SCH ×3 (08:35→20:10)
[2018-05-31] MEDS: NYSTATIN TOPICAL POWDER 15GM BOTTLE. TP SCH ×2 (08:35→20:10)
[2018-05-31 11:23] VITALS: BP 160/81
[2018-05-31 15:01] VITALS: BP 137/82
[2018-05-31 19:57] VITALS: BP 114/71
[2018-05-31 22:47] VITALS: BP 119/76
[2018-06-01] MEDS: IPRATRPIUM/ALBUTEROL 0.5/2.5MG 3 ML NEBU. NEB SCH ×4 (05:09→20:09)
[2018-06-01 05:40] VITALS: BP 128/79
[2018-06-01] MEDS: PRAMIPEXOLE 0.5 MG TABLET. PO SCH ×3 (08:50→20:36)
[2018-06-01] MEDS: MULTIVITAMIN with MINERAL TABLET. PO SCH (08:51)
[2018-06-01] MEDS: CHOLECALCIFEROL (VITAMIN D3) 1,000 UNIT TABLET PO SCH (08:51)
[2018-06-01] MEDS: CETIRIZINE HCL 10 MG TABLET PO SCH (08:51)
[2018-06-01] MEDS: LACTOBACILLUS RHAMNOSUS GG 1 CAPSULE. PO SCH ×2 (08:51→20:36)
[2018-06-01] MEDS: CARBIDOPA/LEVODOPA 25/100MG TABLET PO SCH ×4 (08:51→20:36)
[2018-06-01] MEDS: NYSTATIN TOPICAL POWDER 15GM BOTTLE. TP SCH ×2 (09:00→20:36)
[2018-06-01 11:00] VITALS: BP 114/70
--- NOTE | 2018-06-01 13:19 | PN ---
DATE: 06/01/2018 SUBJECTIVE: The patient is a 68-year-old male patient, who was admitted with shortness of breath, cough with mostly dry and he was found to have bilateral lung infiltrates, more so on the left than the right. As he is allergic to PENICILLIN, I started him on levofloxacin. The patient continued to have some shortness of breath on exertion. Cough is mostly dry. PHYSICAL EXAMINATION: GENERAL: When I examined him, he was sitting in his chair, eating his lunch in no apparent distress. There was no pallor, jaundice, cyanosis, or thyromegaly. No jugular venous distension. No limb edema. VITAL SIGNS: His heart rate was 70, blood pressure 114/70, temperature was 97.6, respiratory rate was 20, and oxygen saturation was 96% on 2 liters of oxygen. HEAD, EYES, EARS, NOSE AND THROAT: Showed normocephalic, atraumatic. NECK: Supple. HEART: Showed normal first and second heart sounds with no gallop, rub or murmur. CHEST: Shows central trachea, equal bilateral expansion, air entry, vesicular sounds with crepitation, early inspiratory coarse crepitation, more on the left than the right. I could not appreciate any rhonchi. ABDOMEN: Distended, soft, nontender. No guarding or rigidity. No organomegaly. All hernial orifice intact. Bowel sounds normal. NEUROLOGIC: He was awake, alert, responding appropriately. All cranial nerves intact. He moves extremities without difficulty, ambulates with a walker. He apparently was evaluated today by the physical therapist and he clearly desaturates on 2 liters of oxygen by nasal cannula. ASSESSMENT: 1. Community-acquired pneumonia. 2. The patient probably has some form of pulmonary fibrosis that is more pronounced in the left side than right. PLAN: My plan is to continue with IV Levaquin. Continue with other medication. I will also add chest physical therapy and if he remains stable I will discharge him home to make arrangement for him to be seen by the macaroni press operator as I am fairly certain that he has some form of underlying idiopathic pulmonary fibrosis. LYN RÍOS MD DR: FRANKLIN/harmony JOB#: [id number] / [id number]
--- NOTE | 2018-06-01 16:01 | RAD ---
CT of the chest without contrast, 06/01/2018: HISTORY: Shortness of breath, pneumonia, fibrosis Noncontrast scans were obtained in inspiration. Routine and high-resolution reconstructions were produced. Comparison is made to an exam from 08/29/2017. There are moderate patchy groundglass and interstitial type infiltrates in both lungs. These are more severe on the left. More extensive infiltrates were present on the previous study. The previous study was not obtained in inspiration due to the fact that it was a CTA study. This limits comparison with today's inspiratory images. No pleural fluid is evident. There is calcific plaquing of the thoracic aorta. The right subclavian artery arises distally from the aortic arch which is a normal variant. There are mildly prominent mediastinal lymph nodes. The largest of these lie near the level the AP window and measure approximately 1.4 cm in short axis dimension. One of these nodes may have increased very slightly in size while the other AP window node is unchanged. Mild scattered degenerative changes are present in the spine. A surgical plate and screws is evident in the lower cervical region. IMPRESSION: 1. Moderate mixed airspace and interstitial opacities in both lungs, left greater than right, which have improved since 08/29/2017. The findings suggest recurrent or residual pneumonia. A component of underlying chronic lung disease cannot be excluded, although the lungs were clear on the 03/09/2004 exam. 2. Mild mediastinal adenopathy, similar to that seen on the previous study. PQRS Compliance Statement: One or more of the following individualized dose reduction techniques were utilized for this examination: 1. Automated exposure control 2. Adjustment of the mA and/or kV according to patient size 3. Use of iterative reconstruction technique Electronically signed by: aJy Santacruz MD (06/01/2018 3:57 PM) [facility]
[2018-06-01 16:11] VITALS: BP 102/66
[2018-06-01] MEDS ORDERED: levoFLOXacin 750 MG TABLET PO SCH (19:30)
[2018-06-01 20:08] VITALS: BP 125/79
[2018-06-01 23:33] VITALS: BP 143/84
[2018-06-02 05:55] VITALS: BP 136/80
[2018-06-02] MEDS: IPRATRPIUM/ALBUTEROL 0.5/2.5MG 3 ML NEBU. NEB SCH ×2 (05:59→11:26)
[2018-06-02 07:54] LABS: HEMATOCRIT 44.6 % (39.0-53.0); HEMOGLOBIN 14.6 g/dL (13.0-17.5); RED BLOOD COUNT 5.1 x10^6/uL (4.30-5.70); WHITE BLOOD COUNT 8.6 x10^3/uL (4.0-11.0)
[2018-06-02 07:57] LABS: CALCIUM 8.8 mg/dL (8.5-10.1); CREATININE 0.8 mg/dL (0.7-1.3); GFR 95.6; POTASSIUM 4.2 mmol/L (3.5-5.1)
[2018-06-02] MEDS: CETIRIZINE HCL 10 MG TABLET PO SCH (08:25)
[2018-06-02] MEDS: LACTOBACILLUS RHAMNOSUS GG 1 CAPSULE. PO SCH (08:25)
[2018-06-02] MEDS: MULTIVITAMIN with MINERAL TABLET. PO SCH (08:25)
[2018-06-02] MEDS: CHOLECALCIFEROL (VITAMIN D3) 1,000 UNIT TABLET PO SCH (08:25)
[2018-06-02] MEDS: CARBIDOPA/LEVODOPA 25/100MG TABLET PO SCH ×2 (08:25→14:44)
[2018-06-02] MEDS: NYSTATIN TOPICAL POWDER 15GM BOTTLE. TP SCH (08:25)
[2018-06-02] MEDS: PRAMIPEXOLE 0.5 MG TABLET. PO SCH ×2 (08:26→14:44)
[2018-06-02 10:58] VITALS: BP 120/79
[2018-06-02] MEDS ORDERED: LEVO750T5 PO (13:59)
[2018-06-02] MEDS ORDERED: levoFLOXacin 750 MG TABLET PO SCH (14:15)
--- NOTE | 2018-06-02 15:13 | DS ---
DATE OF DISCHARGE: 06/02/2018 HOSPITAL COURSE: The patient is a 68-year-old male patient who was admitted with increasing shortness of breath, cough, which is mostly dry. He denied any chest pain, denied any chills, rigors or fever. He was evaluated and had a chest x-ray done, which showed that he has left lower lobe infiltrate. Therefore, the patient was admitted with community-acquired pneumonia, was started on IV Levaquin. He is ALLERGIC TO PENICILLINS and CEPHALOSPORINS. He did well; however, he continued to require oxygen, especially on exertion and therefore, a decision was made to discharge him home with home oxygen to continue with oral antibiotics. PHYSICAL EXAMINATION: GENERAL: When I examined, today he looked well and was clearly in no apparent respiratory distress, pale, but no jaundice, cyanosis, or thyromegaly. No jugular venous distention. No limb edema. VITAL SIGNS: Her heart rate was 73, blood pressure was 120/79, temperature was 98.1, respiratory rate was 20, and oxygen saturation was 97% on 2 liters oxygen. HEENT: Examination of the head, eyes, ears, nose and throat showed normocephalic, atraumatic. NECK: Supple. HEART: Showed normal first and second heart sounds. No gallop, rub or murmur. CHEST: Shows central trachea, equal air expansion, air entry, vesicular sounds with crepitation that are coarse early inspiratory, mostly on the left side compared to much lesser extent on the right side. There is no wheezing. ABDOMEN: Slightly distended, soft, nontender. No guarding or rigidity. No organomegaly. Hernial orifices are intact and bowel sounds normal. NEUROLOGIC: He is awake, alert, responding appropriately. All his cranial nerves are intact. He moves extremities without difficulty. He has prominent parkinsonian feature and he walks with a walker. His intake over the last 24 hours was 1300, output was 1750. LABORATORY DATA: His lab work as of this morning showed a white cell count of 8600, hemoglobin 14.5, hematocrit 44.5, MCV 87, and platelet count of 189,000. His chemistry showed a serum sodium 137, potassium 4.2, chloride 99, bicarbonate 29, anion gap of 9, BUN 12, creatinine 0.6, estimated GFR was 65 mL per minute. His glucose was 102, calcium was 8.8. DISCHARGE MEDICATIONS: He was discharged home to continue on levofloxacin 750 mg once a day for 5 more days, carbidopa/levodopa 1 tablet 4 times a day, cetirizine 10 mg daily and he is on ergocalciferol, vitamin D3 1000 International unit once a day, multivitamin 1 tablet once a day, nystatin powder apply topically for twice a day, and Mirapex 1.5 mg x a day. FINAL DISCHARGE DIAGNOSES: 1. Community-acquired pneumonia. 2. Questionable underlying pulmonary fibrosis. 3. Parkinson's disease. LYN RÍOS MD DR: FRANKLIN/harmony JOB#: [id number] / [id number]
== END 2018-06-02 14:50 | disposition home health service (06) | DRG 871 ==
LOC: 1 SOUTH 17:48
PROVIDERS: ADMIT Internal Medicine; ATTEND Internal Medicine
DX: A41.9 Sepsis, unspecified organism (principal); J18.9 Pneumonia, unspecified organism; J84.10 Pulmonary fibrosis, unspecified; G20 Parkinson's disease; E11.9 Type 2 diabetes mellitus without complications; Z82.0 Family history of epilepsy and other diseases of the nervous system; Z82.41 Family history of sudden cardiac death; Z82.49 Family history of ischemic heart disease and other diseases of the circulatory system; Z88.0 Allergy status to penicillin; Z98.1 Arthrodesis status; Z79.899 Other long term (current) drug therapy; Z88.8 Allergy status to other drugs, medicaments and biological substances
CPT/HCPCS: 36415; 36600; 71250; 80048; 80053; 82803; 83605; 85025; 85027; 87040; 94640; 94667; J1956; J7620; 97110; 97530; 97535

== ENCOUNTER → 2018-05-29 | Outpatient (CLI) | payer OTHER ==
[~2018-05-29] MED LIST changes: +CEPH-264 PO; +CETI10TA16 PO; +CHOL10003 PO; +LEVO750T5 PO; +MULT1TAB52 PO; +NYST15PO9 TP
--- NOTE | 2018-05-29 17:21 | RAD ---
Examination: CHEST PA LATERAL History: SHORT OF BREATH FOR A FEW DAYS Comparison/Correlation: 08/30/2017 portable chest x-ray exam Findings: Frontal and lateral views of chest were obtained. Partially visualized postoperative cervical spine fusion noted. Heart size normal. Interstitial infiltrates of the lung watson are especially present on the left. Improved aeration of the left lower lung field is suggested compared to previous exam. Pulmonary vasculature is mildly congested. Interstitial thickening of the right lung field is minimal. No pneumothorax. No significant effusion. Impression: Mild improvement in left basilar aeration. Extensive infiltrates again seen. Electronically signed by: Jaswinder Mancini MD (05/29/2018 5:17 PM) [id number]
== END | disposition home or self-care (01) ==
LOC: PMG 16:54
PROVIDERS: ATTEND Registered Nurse
DX: R06.02 Shortness of breath (principal); R91.8 Other nonspecific abnormal finding of lung field; R09.89 Other specified symptoms and signs involving the circulatory and respiratory systems; Z98.890 Other specified postprocedural states
CPT/HCPCS: 71046